=== PATIENT | female | born 1950 | race Caucasian/White ===

== ENCOUNTER 2020-05-14 14:41 | Outpatient (RCR) | payer MEDICARE | END 2020-05-15 | LOC: OT 14:41 | PROVIDERS: ATTEND Orthopaedic Surgery | DX: M24.421 Recurrent dislocation, right elbow (principal); S52.122A Displaced fracture of head of left radius, initial encounter for closed fracture; S52.042A Displaced fracture of coronoid process of left ulna, initial encounter for closed fracture ==

== ENCOUNTER 2020-06-08 15:59 | Outpatient (RCR) | payer MEDICARE | END 2020-06-14 | LOC: OT 15:59 | PROVIDERS: ATTEND Orthopaedic Surgery | DX: M24.421 Recurrent dislocation, right elbow (principal); S52.122A Displaced fracture of head of left radius, initial encounter for closed fracture; S52.042A Displaced fracture of coronoid process of left ulna, initial encounter for closed fracture ==

== ENCOUNTER 2020-07-12 14:51 | Outpatient (RCR) | payer MEDICARE | END 2020-07-15 | LOC: OT 14:51 | PROVIDERS: ATTEND Orthopaedic Surgery | DX: M24.421 Recurrent dislocation, right elbow (principal); S52.122A Displaced fracture of head of left radius, initial encounter for closed fracture; S52.042A Displaced fracture of coronoid process of left ulna, initial encounter for closed fracture ==

== ENCOUNTER 2020-08-13 08:56 | Outpatient (RCR) | payer MEDICARE | END 2020-08-15 | LOC: OT 08:56 | PROVIDERS: ATTEND Orthopaedic Surgery | DX: S52.122A Displaced fracture of head of left radius, initial encounter for closed fracture (principal); M24.422 Recurrent dislocation, left elbow; S52.042A Displaced fracture of coronoid process of left ulna, initial encounter for closed fracture ==

== ENCOUNTER 2020-09-10 14:00 | Outpatient (RCR) | payer MEDICARE | END 2020-09-12 | LOC: OT 14:00 | PROVIDERS: ATTEND Orthopaedic Surgery | DX: S52.122A Displaced fracture of head of left radius, initial encounter for closed fracture (principal); M24.422 Recurrent dislocation, left elbow; S52.042A Displaced fracture of coronoid process of left ulna, initial encounter for closed fracture ==

== ENCOUNTER → 2020-10-13 | Outpatient (RCR) | payer MEDICARE | LOC: OT 09-13 15:20 | PROVIDERS: ATTEND Orthopaedic Surgery | DX: S52.122A Displaced fracture of head of left radius, initial encounter for closed fracture (principal); M24.422 Recurrent dislocation, left elbow; S52.042A Displaced fracture of coronoid process of left ulna, initial encounter for closed fracture ==

== ENCOUNTER 2020-10-20 15:00 | Outpatient (RCR) | payer MEDICARE | END 2020-11-12 | LOC: OT 15:00 | PROVIDERS: ATTEND Orthopaedic Surgery | DX: S52.122A Displaced fracture of head of left radius, initial encounter for closed fracture (principal); S52.042A Displaced fracture of coronoid process of left ulna, initial encounter for closed fracture; M24.422 Recurrent dislocation, left elbow ==